=== PATIENT | female | born 1990 | race Caucasian/White ===

== ENCOUNTER 2019-12-18 14:20 | Emergency (ER) | payer OTHER ==
[~2019-12-18] VITALS: Ht 160 cm; Wt 72.6 kg
[2019-12-18 14:20] VITALS: BP 160/95
--- NOTE | 2019-12-18 14:27 | NUR ---
28 Y/O FEMALE C/O CHEST PAIN X 2 DAYS. STATES 7/10 STERNAL PRESSURE. PT UNABLE TO SLEEP AT NIGHT DUE TO CHEST PAIN. HAS HAD THIS FEELING IN THE PAST WHEN SHE WAS STRESSED. DENIES COUGH/CONGESTION. RR EVEN AND UNLABORED, NOT IN DISTRESS. TOOK ALEVE AT 0900 WITH SLIGHT RELIEF. SITTING IN CHAIR, CALM AND PLEASANT. MEDHX: DENIES ALLERGIES: NKA
--- NOTE | 2019-12-18 14:29 | NUR ---
DR ANTHONY AT BEDSIDE EXAMINING PT
--- NOTE | 2019-12-18 14:40 | NUR ---
EKG PERFORMED AT BEDSIDE. PT COVERED IN GOWN DURING PROCEDURE
[2019-12-18 15:30] VITALS: BP 141/88
== END 2019-12-18 15:31 | disposition home or self-care (01) ==
LOC: MED 14:20 → EEVIPCON 14:20 → MED 15:31
DX: R07.89 Other chest pain (principal)
CPT/HCPCS: 71045; 93005; 99283; Q0092